=== PATIENT | female | born 1950 | race Hispanic/Latino ===

== ENCOUNTER 2017-07-27 13:22 | Observation (INO) | payer MEDICARE, OTHER ==
[~2017-07-27] VITALS: Ht 165.1 cm; Wt 90.7 kg
[2017-07-27] MEDS ORDERED: PANTOPRAZOLE 40 MG 10ML VIAL IV STA (13:45)
[2017-07-27] MEDS ORDERED: SODIUM CHLORIDE 0.9% 1000ML 1,000 ML IV STA (13:45)
[2017-07-27] MEDS ORDERED: METOPROLOL TARTRATE 50 MG TAB PO STA (13:45)
[2017-07-27] MEDS ORDERED: ENOXAPARIN SODIUM INJ 100 MG/ML SYR SC STA (13:45)
--- NOTE | 2017-07-27 13:55 | Diagnostic Imaging Report ---
PROCEDURE: CHEST SINGLE (PORTABLE) COMPARISON: None. INDICATIONS: CARDIAC WORKUP FINDINGS: The lungs are well-inflated. No focal airspace consolidation, pleural effusion, or pneumothorax. There is mild enlargement of the cardiac silhouette with multiple median sternotomy wires. Atherosclerotic calcification and tortuosity of the thoracic aorta. Enlargement of the central pulmonary vasculature. No acute osseous abnormality. Nonaggressive appearing sclerotic focus in the proximal right humerus measures 3.1 cm, and likely represents an enchondroma, though the differential diagnosis includes bone infarct. CONCLUSION: Mild cardiomegaly with pulmonary venous congestion. Dictated by: César Sky M.D. on 07/27/2017 at 13:56 Electronically approved by: César Sky M.D. on 07/27/2017 at 13:56
[2017-07-27] MEDS ORDERED: FAMOTIDINE 20 MG/2 ML VIAL IV SCH (14:00)
[2017-07-27] MEDS ORDERED: METOPROLOL TARTRATE 25 MG TAB PO SCH (14:00)
[2017-07-27] MEDS ORDERED: NITROGLYCERIN 0.4 MG SUBL SL PRN (14:00)
[2017-07-27] MEDS ORDERED: DEXTROSE 50% SYRINGE 50 ML IV PRN (14:00)
[2017-07-27] MEDS ORDERED: ENOXAPARIN SODIUM INJ 100 MG/ML SYR SC SCH (14:00)
[2017-07-27] MEDS ORDERED: ONDANSETRON HCL INJ 2 MG/ML VIAL IV PRN (14:00)
[2017-07-27] MEDS ORDERED: MORPHINE SULFATE 2 MG/ML SYR IV PRN (14:00)
[2017-07-27] MEDS ORDERED: ENOXAPARIN INJ 80 MG/0.8 ML SYR SC SCH (14:00)
[2017-07-27 14:25] LABS: BASOPHILS # (AUTO) 0.1 (0.0-0.1); BASOPHILS % 0.6 % (0.0-1.0); EOSINOPHILS # (AUTO) 0.4 (0.0-0.4); EOSINOPHILS % 3.8 % (0.0-6.0); HEMATOCRIT 44.3 % (34.2-44.1); HEMOGLOBIN 14.4 g/dL (12.0-16.0); LYMPHOCYTES # (AUTO) 2.6 (1.0-3.2); MEAN CORPUSCULAR HEMOGLOBIN 27.6 pg (28-32); MEAN CORPUSCULAR HGB CONC 32.5 g/dL (31-35); MONOCYTES # (AUTO) 0.7 (0.2-0.8); MONOCYTES % 6.3 % (4.4-11.3); NEUTROPHILS # (AUTO) 6.5 (2.1-6.9); NEUTROPHILS % 63.6 % (38.7-80.0); PLATELET COUNT 350 x10e3/uL (140-360); RED BLOOD COUNT 5.21 x10e6/uL (3.6-5.1); RED CELL DISTRIBUTION WIDTH 13.5 % (11.7-14.4)
[2017-07-27 14:31] LABS: INR 1.02; PROTHROMBIN TIME 12.6 seconds (11.9-14.5)
[2017-07-27 14:32] LABS: PARTIAL THROMBOPLASTIN TIME 24.7 seconds (23.8-35.5)
[2017-07-27 14:39] LABS: ALBUMIN 3.4 g/dL (3.5-5.0); ALBUMIN/GLOBULIN RATIO 0.7 (0.8-2.0); ANION GAP 15.3 mmol/L (8-16); CALCIUM 9.3 mg/dL (8.4-10.2); CREATININE, SERUM 1.23 mg/dL (0.57-1.11); MAGNESIUM 1.9 MG/DL (1.3-2.1); POTASSIUM 4.3 mmol/L (3.5-5.1)
[2017-07-27 14:46] LABS: BILIRUBIN,URINE NEGATIVE (NEGATIVE); CLARITY,URINE CLOUDY (CLEAR); COLOR,URINE YELLOW (YELLOW); KETONES,URINE NEGATIVE (NEGATIVE); LEUKOCYTE ESTERASE ,URINE 2+ (NEGATIVE); NITRITE,URINE NEGATIVE (NEGATIVE); URINE UROBILINOGEN 0.2 mg/dL (0.2 - 1)
[2017-07-27 14:49] LABS: PROTEIN,URINE DIPSTICK 1+ (NEGATIVE)
[2017-07-27 14:54] LABS: AMPHETAMINES SCREEN,URINE NEGATIVE (NEGATIVE); BENZODIAZEPINES SCREEN,URINE NEGATIVE (NEGATIVE); PHENCYCLIDINE SCREEN,URINE NEGATIVE (NEGATIVE)
[2017-07-27 15:01] LABS: CREATINE KINASE MB 2.9 ng/mL (0-5.0); THYROID STIMULATING HORMONE 0.76 uIU/mL (0.350-4.940)
[2017-07-27 15:08] LABS: BACTERIA,URINE RARE /HPF; EPITHELIAL CELLS,URINE MODERATE /LPF; MUCUS,URINE FEW (RARE); RBC,URINE 0-5 /HPF (0-5)
[2017-07-27 15:09] LABS: AMORPHOUS SEDIMENT,URINE FEW (FEW)
[2017-07-27] MEDS ORDERED: INSULIN REGULAR, HUMAN 100 UNIT/1 ML 3ML VIAL IV SCH (15:15)
[2017-07-27] MEDS ORDERED: INSULIN REGULAR, HUMAN 100 UNIT/1 ML 3ML VIAL SQ ONE (15:15)
--- OUTSIDE RECORDS SUMMARY | 2017-07-27 15:23 | XMS REPORT ---
Author Author [facility] Address Unknown Phone Unavailable Care Team Providers Care Hand Counter Name Role Phone BEBA GARLAND Unavailable Unavailable Problems This patient has no known problems. Allergies, Adverse Reactions, Alerts This patient has no known allergies or adverse reactions. Medications This patient has no known medications. Results Test Description Test Time Test Comments Text Results Atomic Results Result Comments CHEST SINGLE (PORTABLE) [place] [address] Patient Name: RENETTA WEBSTER MR #: [id number] : 1950 Age/Sex: 67/F Req #: [id number] Adm Physician: Ordered by: BEBA GARLAND MD, MD Report #: [id number] Location: ER Room/Bed: Procedure: [id number] DX/CHEST SINGLE (PORTABLE) Exam Date: 07/27/17 Exam Time: 1335 REPORT STATUS: Signed PROCEDURE: CHEST SINGLE (PORTABLE) COMPARISON: None. INDICATIONS: CARDIAC WORKUP FINDINGS: The lungs are well-inflated. No focal airspace consolidation, pleural effusion, or pneumothorax. There is mild enlargement of the cardiac silhouette with multiple median sternotomy wires. Atherosclerotic calcification and tortuosity of the thoracic aorta. Enlargement of the central pulmonary vasculature. No acute osseous abnormality. Nonaggressive appearing sclerotic focus in the proximal right humerus measures 3.1 cm, and likely represents an enchondroma, though the differential diagnosis includes bone infarct. CONCLUSION: Mild cardiomegaly with pulmonary venous congestion. Dictated by: Jame Barajas M.D. on 07/27/2017 at 13:56 Electronically approved by: Jame Barajas M.D. on 07/27/2017 at 13:56 Dictated By: JAME BARAJAS MD [id number] Transcribed By: HERNANDO on 07/27/17 1358 COPY TO: BEBA GARLAND
[2017-07-27] MEDS ORDERED: CEFTRIAXONE SOD 1 GM VIAL IV SCH (16:00)
[2017-07-27] MEDS ORDERED: HYDRALAZINE HCL 20 MG/ML VIAL IV PRN (16:00)
[2017-07-27] MEDS ORDERED: FUROSEMIDE 20 MG TAB PO SCH (16:15)
[2017-07-27 17:41] VITALS: BP 153/89
[2017-07-27 17:46] VITALS: BP 153/89
[2017-07-27] MEDS ORDERED: TYLENOL # 31 EA PO (17:55)
[2017-07-27] MEDS ORDERED: ASPIRIN81 MG PO (17:55)
[2017-07-27] MEDS ORDERED: LIPITOR20 MG PO (17:55)
[2017-07-27] MEDS ORDERED: NORVASC5 MG PO (17:55)
[2017-07-27] MEDS ORDERED: COREG12.5 MG PO (17:56)
[2017-07-27] MEDS ORDERED: LASIX40 MG PO (17:56)
[2017-07-27] MEDS ORDERED: GLIPIZIDE5 MG PO (17:57)
[2017-07-27] MEDS ORDERED: LISINOPRIL10 MG PO (17:59)
[2017-07-27] MEDS ORDERED: ISOSORBIDE MONO20 MG PO (17:59)
[2017-07-27] MEDS ORDERED: HYDRALAZINE HCL25 MG PO (17:59)
[2017-07-27] MEDS ORDERED: POTASSIUM CHLO10 ME1 PO (18:00)
[2017-07-27] MEDS ORDERED: MAGNESIUM OXID400 MG PO (18:00)
[2017-07-27] MEDS: METFORMIN HCL 500 MG TAB PO SCH (18:44)
[2017-07-27] MEDS: INSULIN REGULAR, HUMAN 100 UNIT/1 ML 3ML VIAL SQ SCH ×2 (18:51→20:35)
[2017-07-27 20:00] VITALS: BP 162/91
[2017-07-27] MEDS: ISOSORBIDE DINITRATE 20 MG TAB PO SCH (20:30)
[2017-07-27] MEDS: FUROSEMIDE INJ 10 MG/ML 4 ML VIAL IV SCH (20:30)
[2017-07-27] MEDS: CARVEDILOL 12.5 MG TAB PO SCH (20:30)
[2017-07-27] MEDS: SIMVASTATIN 40 MG TAB PO SCH (20:30)
[2017-07-27] MEDS: HYDRALAZINE HCL 25 MG TAB PO SCH (20:30)
--- NOTE | 2017-07-27 20:44 | Consultation ---
DATE OF CONSULTATION: July 27, 2017 REQUESTING PHYSICIAN: Dr. Mckee. REASON FOR CONSULTATION: Congestive heart failure. HISTORY OF PRESENT ILLNESS: This is a 67-year-old woman with history of coronary artery disease, status post 3-vessel CABG in 2016, congestive heart failure, diabetes mellitus, hypertension and hyperlipidemia who presents after she ran out of her medications 2 weeks ago. The patient reports she was moving between her daughter's houses and lost her medications. She denies any acute complaints. She states that she has been having discomfort across her chest that has been ongoing since her bypass surgery. This is unchanged. In addition, she has chronic orthopnea for the last year and dyspnea on exertion at approximately 10-15 feet. This has not changed as far as she can tell. She denies any edema or palpitations. REVIEW OF SYSTEMS: Negative except for HPI PAST MEDICAL HISTORY: Coronary artery disease, status post 3-vessel CABG, reportedly in November 2015, congestive heart failure, diabetes mellitus, hypertension, hyperlipidemia, chronic kidney disease. PAST SURGICAL HISTORY: Three vessel CABG, cholecystectomy, appendectomy. ALLERGIES: NIACIN. SOCIAL HISTORY: She quit smoking in 1999. She previously smoked approximately one pack a week for 10 years. Denies any alcohol or illicit drugs. MEDICATIONS: Please see EMR. FAMILY HISTORY: Noncontributory. PHYSICAL EXAMINATION VITAL SIGNS: Temperature 98 degrees, pulse 81, respiratory rate 18, blood pressure 153/89, oxygen saturation 95% on room air. GENERAL: An obese woman in no acute distress. HEENT: Normocephalic, atraumatic. Pupils are equal. No scleral icterus. NECK: Supple. No thyromegaly or cervical lymphadenopathy. No carotid bruits. LUNGS: Clear to auscultation bilaterally. No wheezes or crackles. CARDIOVASCULAR: Normal rate, regular rhythm. No murmurs. Normal S1 and S2. ABDOMEN: Soft and nontender. EXTREMITIES: No edema. NEUROLOGIC: Nonfocal exam. EKG: Sinus tachycardia with occasional PVCs, possible left atrial enlargement. Chest x-ray: Mild cardiomegaly with pulmonary venous congestion. Echocardiogram was an extremely technically difficult study with suboptimal views. The left ventricle is normal size with moderate, extensive LVH. LVEF is moderately impaired with EF between 30% to 35%. Estimated RVSP was 53 mmHg. RA pressure of 3 mmHg. There was mild aortic stenosis with peak velocity of 2 mm a second and a mean gradient of 10 mmHg. IMPRESSION 1. Hypertensive urgency. 2. Chronic systolic heart failure. 3. Diabetes mellitus, uncontrolled., likely chronic kidney disease. 4. Coronary artery disease, status post 3-vessel coronary artery bypass graft. 5. Hyperlipidemia. RECOMMENDATIONS: The patient has resumed her home cardiac medications with improvement. This should improve her blood pressure. In addition, her RVSP is elevated, likely she has component of volume overload. We will start the patient on intravenous Lasix. Continue current cardiac medications. Otherwise, if her blood pressure and heart rate tolerates, plan to titrate up her outpatient Carvedilol which was 12.5 mg p.o. b.i.d. Monitor creatinine closely. Thank you for this consult. We will continue to follow. Job#: [id number] [place]
[2017-07-27 22:43] LABS: CREATINE KINASE MB 2.8 ng/mL (0-5.0)
[2017-07-28] VITALS (7 sets, daily range): BP systolic 100–142; BP diastolic 58–87
[2017-07-28 06:25] LABS: BASOPHILS # (AUTO) 0.1 (0.0-0.1); BASOPHILS % 0.7 % (0.0-1.0); EOSINOPHILS # (AUTO) 0.5 (0.0-0.4); EOSINOPHILS % 5.3 % (0.0-6.0); HEMATOCRIT 41.9 % (34.2-44.1); HEMOGLOBIN 13.2 g/dL (12.0-16.0); LYMPHOCYTES # (AUTO) 1.9 (1.0-3.2); MEAN CORPUSCULAR HEMOGLOBIN 27.4 pg (28-32); MEAN CORPUSCULAR HGB CONC 31.5 g/dL (31-35); MEAN CORPUSCULAR VOLUME 86.9 fL (81-99); MONOCYTES # (AUTO) 0.6 (0.2-0.8); MONOCYTES % 6.9 % (4.4-11.3); NEUTROPHILS # (AUTO) 5.7 (2.1-6.9); NEUTROPHILS % 64.4 % (38.7-80.0); PLATELET COUNT 321 x10e3/uL (140-360); RED BLOOD COUNT 4.82 x10e6/uL (3.6-5.1); RED CELL DISTRIBUTION WIDTH 13.9 % (11.7-14.4)
[2017-07-28 06:46] LABS: ALBUMIN/GLOBULIN RATIO 0.8 (0.8-2.0); CALCIUM 8.9 mg/dL (8.4-10.2); CHOL/HDL RATIO 3.3 (3.0-3.6); CREATININE, SERUM 1.72 mg/dL (0.57-1.11); MAGNESIUM 1.9 MG/DL (1.3-2.1)
[2017-07-28 07:13] LABS: CREATINE KINASE MB 1.8 ng/mL (0-5.0)
[2017-07-28 07:40] LABS: ANION GAP 14.2 mmol/L (8-16)
[2017-07-28 07:57] LABS: POTASSIUM 5.2 mmol/L (3.5-5.1)
[2017-07-28] MEDS: FUROSEMIDE INJ 10 MG/ML 4 ML VIAL IV SCH (08:12)
[2017-07-28] MEDS: METFORMIN HCL 500 MG TAB PO SCH (08:12)
[2017-07-28] MEDS: ISOSORBIDE DINITRATE 20 MG TAB PO SCH ×3 (08:13→20:11)
[2017-07-28] MEDS: CARVEDILOL 12.5 MG TAB PO SCH ×2 (08:13→20:10)
[2017-07-28] MEDS: HYDRALAZINE HCL 25 MG TAB PO SCH ×3 (08:13→18:06)
[2017-07-28] MEDS: ASPIRIN 81 MG ENTERIC COATED PO SCH (08:13)
[2017-07-28] MEDS: INSULIN REGULAR, HUMAN 100 UNIT/1 ML 3ML VIAL SQ SCH ×4 (08:20→20:11)
[2017-07-28] MEDS ORDERED: LISINOPRIL 10 MG TAB PO SCH (09:00)
[2017-07-28] MEDS ORDERED: ASPIRIN 325 MG TAB EC PO SCH (09:00)
--- NOTE | 2017-07-28 10:24 | Discharge Summary ---
NO DICTATION, LENGTH 19 SECONDS. CEDRIC MCDONALD M.D. Job#: [id number] MH
[2017-07-28] MEDS ORDERED: GLIPIZIDE 5 MG TAB ER PO SCH (16:30)
[2017-07-28] MEDS: SIMVASTATIN 40 MG TAB PO SCH (20:11)
--- NOTE | 2017-07-28 22:45 | Progress Note ---
DATE: July 28, 2017 CARDIOLOGY PROGRESS NOTE SUBJECTIVE: Feels better, no new complaints. OBJECTIVE: VITAL SIGNS: Temperature 96.6, heart rate 82, respiratory rate 20, blood pressure 135/77, O2 sat 99% on room air. GENERAL: In no acute distress, alert. NECK: No JVD. CHEST: Clear to auscultation. CARDIOVASCULAR: Regular rate and rhythm. Normal S1 and S2. No S3, no S4. Sternotomy scar. ABDOMEN: Soft. EXTREMITIES: Trace edema. CARDIOVASCULAR MEDICATIONS: 1. Isosorbide dinitrate 20 mg t.i.d. 2. Hydralazine 50 mg t.i.d. 3. Carvedilol 12.5 mg q.12h. 4. Aspirin 81 mg daily. 5. Zocor 40 mg nightly. 6. Nitroglycerin p.r.n. LABORATORY STUDIES: Studies reviewed. Hemoglobin 13.2. INR 1. Creatinine 1.7, up trending from 1.2. Yesterday glucose 168. Serial troponins are negative. LDL 42, HDL 28. ASSESSMENT: 1. Coronary artery disease, status post aortocoronary bypass, 3-vessel in 2016. 2. Diabetes mellitus, uncontrolled. 3. Hyperlipidemia. 4. Hypertensive urgency. 5. Moderate left ventricular hypertrophy. 6. Mild aortic stenosis in the setting of possibly bicuspid valve on limited echocardiographic study. 7. Acute kidney injury on chronic kidney disease. 8. Borderline hyperkalemia. PLAN: Monitor urine output and renal function as well as electrolytes, on diuretics with noted improvement. Blood pressure improving following up titration of carvedilol. Has impairment in ventricular systolic function estimated at 30% to 35% on echocardiogram. Will need evaluation for AICD following optimization of medical therapy. Advise on close followup with Dr. Chamorro upon discharge in the office. Job#: [id number]
[2017-07-29 00:18] VITALS: BP 151/79
[2017-07-29 04:00] VITALS: BP 108/55
[2017-07-29 06:32] LABS: CALCIUM 8.6 mg/dL (8.4-10.2); CREATININE, SERUM 1.43 mg/dL (0.57-1.11)
[2017-07-29 08:00] VITALS: BP 152/90
[2017-07-29] MEDS: ASPIRIN 81 MG ENTERIC COATED PO SCH (08:59)
[2017-07-29] MEDS: HYDRALAZINE HCL 25 MG TAB PO SCH (08:59)
[2017-07-29] MEDS: ISOSORBIDE DINITRATE 20 MG TAB PO SCH (09:00)
[2017-07-29] MEDS: CARVEDILOL 12.5 MG TAB PO SCH (09:00)
[2017-07-29] MEDS: INSULIN REGULAR, HUMAN 100 UNIT/1 ML 3ML VIAL SQ SCH (09:00)
[2017-07-29 09:11] VITALS: BP 152/90
[2017-07-29] MEDS ORDERED: GLIPIZIDE5 MG PO (10:51)
[2017-07-29] MEDS ORDERED: HYDRALAZINE HCL25 MG PO (10:51)
--- NOTE | 2017-07-29 11:30 | Discharge Summary ---
PRIMARY CARE DOCTOR: Luis Brasher MD FINAL DIAGNOSIS: Hypertensive urgency due to noncompliance. SECONDARY DIAGNOSES 1. Acute renal failure and mild hyperkalemia due to over-diuresis. 2. Uncontrolled diabetes due to noncompliance. 3. Systolic congestive heart failure with ejection fraction of 35%. 4. Stage-3 chronic kidney disease, stable. SPUDDER: Dr. Little of cardiology. PROCEDURES/STUDIES PERFORMED: Echocardiogram. HISTORY: Per H and P. HOSPITAL COURSE: The patient ran out of all of her medicines for 2 weeks. She came in with systolic blood pressure of 230 and also with headache. After resuming her medicines, she did well. It was unclear whether she was in acute CHF on admission. Her lungs sound fine. The patient was not short of breath. However, chest x-ray showed a little bit of pulmonary edema. Her echocardiogram was suggestive of volume overload. Therefore, IV Lasix 40 mg q.8 h. was started. However, the patient's creatinine went up to 1.7 with a potassium of 5.2. EKG was done, which did not show any peaked T waves. IV Lasix was discontinued. The potassium today on the day of discharge is 4.0, and creatinine is back down to 1.4. I will go ahead and resume her p.o. Lasix that she takes at home which is 40 mg twice a day and also resume her lisinopril which is 10 mg daily. I have updated her PCP on this hospitalization. The patient will follow up with her. As far as her uncontrolled diabetes, glipizide was restarted, and her sugar is better now. CONDITION ON DISCHARGE: Stable. DISCHARGE MEDICATIONS: Please see medication reconciliation form. The patient was seen and examined today. CEDRIC MCDONALD M.D. Job#: [id number] cc:LUIS BRASHER MD
[2017-07-29 12:27] VITALS: BP 100/56
== END 2017-07-29 12:56 | disposition home or self-care (01) ==
LOC: ER 13:26 → ERHOLD 15:21 → IMCU 16:29
PROVIDERS: ADMIT Internal Medicine; ATTEND Internal Medicine
DX: R07.9 Chest pain, unspecified (principal); I16.0 Hypertensive urgency; E11.65 Type 2 diabetes mellitus with hyperglycemia; R51 Headache; I13.0 Hypertensive heart and chronic kidney disease with heart failure and stage 1 through stage 4 chronic kidney disease, or unspecified chronic kidney disease; Z87.891 Personal history of nicotine dependence; E66.9 Obesity, unspecified; Z68.33 Body mass index [BMI] 33.0-33.9, adult; N18.3 Chronic kidney disease, stage 3 (moderate); Z95.1 Presence of aortocoronary bypass graft; I50.22 Chronic systolic (congestive) heart failure; E78.5 Hyperlipidemia, unspecified; I35.0 Nonrheumatic aortic (valve) stenosis; N17.9 Acute kidney failure, unspecified; E87.5 Hyperkalemia; T50.1X5A Adverse effect of loop [high-ceiling] diuretics, initial encounter; Y92.230 Patient room in hospital as the place of occurrence of the external cause; T46.5X6A Underdosing of other antihypertensive drugs, initial encounter
CPT/HCPCS: 36415 ×3; 71045; 80048; 80053 ×2; 80061; 80307; 81001; 82550 ×2; 82553 ×2; 82948 ×3; 83036; 83690; 83735 ×2; 83880; 84443; 84484 ×2; 85025 ×2; 85610; 85730; 87086; 93005 ×2; 93306; 99285; G0378 ×3; J1650; J1940 ×2; J2270; J2405; J7030

== ENCOUNTER 2018-03-05 10:53 | Emergency (ER) | payer OTHER ==
[~2018-03-05] VITALS: Ht 157.5 cm; Wt 99.8 kg
[~2018-03-05 10:53] MED LIST: ASPIRIN81 MG PO; COREG12.5 MG PO; GLIPIZIDE5 MG PO; HYDRALAZINE HCL25 MG PO; ISOSORBIDE MONO20 MG PO; LASIX40 MG PO; LIPITOR20 MG PO; LISINOPRIL10 MG PO; MAGNESIUM OXID400 MG PO; NORVASC5 MG PO; POTASSIUM CHLO10 ME1 PO; TYLENOL # 31 EA PO
[2018-03-05] MEDS ORDERED: ONDANSETRON HCL INJ 2 MG/ML VIAL IV STA (11:15)
[2018-03-05] MEDS ORDERED: MORPHINE SULFATE 2 MG/ML SYR IV STA (11:15)
[2018-03-05 11:34] LABS: BASOPHILS # (AUTO) 0.1 (0.0-0.1); BASOPHILS % 0.7 % (0.0-1.0); EOSINOPHILS # (AUTO) 0.2 (0.0-0.4); HEMATOCRIT 42.4 % (34.2-44.1); HEMOGLOBIN 13.5 g/dL (12.0-16.0); LYMPHOCYTES # (AUTO) 1.6 (1.0-3.2); LYMPHOCYTES % 15.5 % (18.0-39.1); MEAN CORPUSCULAR HEMOGLOBIN 26.7 pg (28-32); MEAN CORPUSCULAR HGB CONC 31.8 g/dL (31-35); MONOCYTES # (AUTO) 0.5 (0.2-0.8); MONOCYTES % 4.9 % (4.4-11.3); NEUTROPHILS % 76.6 % (38.7-80.0); PLATELET COUNT 271 x10e3/uL (140-360); RED BLOOD COUNT 5.05 x10e6/uL (3.6-5.1); RED CELL DISTRIBUTION WIDTH 13.6 % (11.7-14.4)
[2018-03-05 11:48] LABS: ALBUMIN 3.2 g/dL (3.5-5.0); ALBUMIN/GLOBULIN RATIO 0.8 (0.8-2.0); ANION GAP 17.8 mmol/L (8-16); CALCIUM 9.2 mg/dL (8.4-10.2); CREATININE, SERUM 1.67 mg/dL (0.57-1.11); POTASSIUM 3.8 mmol/L (3.5-5.1)
[2018-03-05 11:54] LABS: CREATINE KINASE MB 1.4 ng/mL (0-5.0)
[2018-03-05] MEDS ORDERED: INSULIN REGULAR, HUMAN 100 UNIT/1 ML 3ML VIAL IV ONE (12:00)
[2018-03-05] MEDS ORDERED: SODIUM CHLORIDE 0.9% 1000ML 2,000 ML IV SCH (12:00)
--- NOTE | 2018-03-05 13:13 | Diagnostic Imaging Report ---
Exam: Left-sided rib series History: Status post fall with left-sided rib pain Comparison: None. Findings: There is normal bone mineralization. No acute, displaced fracture or dislocation. No aggressive lytic or expansile lesion. No abnormal soft tissue calcification or soft tissue defect. Lungs are grossly clear. No consolidation or effusion. Mild prominence of the cardiac silhouette, which may be partly due to AP projection. Pulmonary vasculature is normal. Impression: 1. No acute, displaced fracture or dislocation. 2. Mild prominence of the cardiac silhouette, which may be partly due to AP projection. Signed by: Dr. Chino Francisco M.D. on 03/05/2018 1:10 PM
[2018-03-05] MEDS ORDERED: INSULIN LISPRO 100 UNIT/1 ML 3ML VIAL SQ STA (14:25)
[2018-03-05 15:30] LABS: BILIRUBIN,URINE NEGATIVE (NEGATIVE); CLARITY,URINE CLEAR (CLEAR); COLOR,URINE YELLOW (YELLOW); KETONES,URINE NEGATIVE (NEGATIVE); LEUKOCYTE ESTERASE ,URINE TRACE (NEGATIVE); NITRITE,URINE NEGATIVE (NEGATIVE); PROTEIN,URINE DIPSTICK NEGATIVE (NEGATIVE); URINE UROBILINOGEN 0.2 mg/dL (0.2 - 1)
[2018-03-05 15:42] LABS: AMORPHOUS SEDIMENT,URINE FEW (FEW); BACTERIA,URINE MANY /HPF; EPITHELIAL CELLS,URINE FEW /LPF; TRANSITIONAL EPI CELLS,URINE MODERATE
== END 2018-03-05 17:10 | disposition home or self-care (01) ==
LOC: ER 10:53
DX: R07.89 Other chest pain (principal); K52.9 Noninfective gastroenteritis and colitis, unspecified; E86.1 Hypovolemia; I95.9 Hypotension, unspecified; W01.0XXA Fall on same level from slipping, tripping and stumbling without subsequent striking against object, initial encounter; Y92.008 Other place in unspecified non-institutional (private) residence as the place of occurrence of the external cause
CPT/HCPCS: 36415; 71101; 80053; 81001; 82550; 82553; 82948; 84484; 85025; 93005; 99284; J2270; J2405; J7030

== ENCOUNTER 2018-10-17 10:18 | Emergency (ER) | payer OTHER ==
[~2018-10-17] VITALS: Ht 157.5 cm; Wt 99.8 kg
--- OUTSIDE RECORDS SUMMARY | 2018-10-17 10:21 | XMS REPORT ---
Author Author [facility] Address Unknown Phone Unavailable Care Team Providers Care Makeup Artistry Instructor Name Role Phone Abhishek HOLDEN Unavailable Unavailable BEBA GARLAND Unavailable Unavailable Payers Payer Name Policy Type Policy Number Effective Date Expiration Date Problems This patient has no known problems. Allergies, Adverse Reactions, Alerts Allergy Name Allergy Type Status Severity Reaction(s) Onset Date Inactive Date Treating Clinician Comments niacin DA Active MO 2017-10-23 00:00:00 Medications This patient has no known medications. Results Test Description Test Time Test Comments Text Results Atomic Results Result Comments RIBS UNILAT W/CXR 2018-03-05 13:07:00 [place] [address] Patient Name: RENETTA WEBSTER MR #: [id number] : 1950 Age/Sex: 67/F Req #: [id number] Adm Physician: Ordered by: QUINN HOLDEN MD Report #: [id number] Location: ER Room/Bed: Procedure: [id number] DX/RIBS UNILAT W/CXR Exam Date: 03/05/18 Exam Time: 1200 REPORT STATUS: Signed Exam: Left-sided rib series History: Status post fall with left-sided rib pain Comparison: None. Findings: There is normal bone mineralization. No acute, displaced fracture or dislocation. No aggressive lytic or expansile lesion. No abnormal soft tissue calcification or soft tissue defect. Lungs are grossly clear. No consolidation or effusion. Mild prominence of the cardiac silhouette, which may be partly due to AP projection. Pulmonary vasculature is normal. Impression: 1. No acute, displaced fracture or dislocation. 2. Mild prominence of the cardiac silhouette, which may be partly due to AP projection. Signed by: Dr. Aleshia Francisco M.D. on 03/05/2018 1:10 PM Dictated By: ALESHIA FRANCISCO MD 131 Transcribed By: ALEXANDRU on 03/05/18 1310 COPY TO: QUINN HLODEN MD CHEST SINGLE (PORTABLE) [place] [address] Patient Name: RENETTA WEBSTER MR #: [id number] : 1950 Age/Sex: 67/F Req #: [id number] Adm Physician: Ordered by: BEBA GARLAND MD, MD Report #: [id number] Location: ER Room/Bed: Procedure: [id number] DX/CHEST SINGLE (PORTABLE) Exam Date: 07/27/17 Exam [...] at 13:56 Dictated By: JAME BARAJAS MD 1353 Transcribed By: HERNANDO on 07/27/17 1353 COPY TO: BEBA GARLAND
[2018-10-17] MEDS ORDERED: ACETAMINOPHEN 1000 MG/100 ML IV STA (10:32)
[2018-10-17] MEDS ORDERED: GENTAMICIN 120MG/NS 100ML 100 ML IV STA (10:32)
[2018-10-17] MEDS ORDERED: SODIUM CHLORIDE 0.9% 1000ML 1,000 ML IV STA (10:32)
[2018-10-17 12:06] LABS: BASOPHILS # (AUTO) 0.1 (0.0-0.1); BASOPHILS % 0.4 % (0.0-1.0); EOSINOPHILS % 0.2 % (0.0-6.0); HEMATOCRIT 44.7 % (34.2-44.1); HEMOGLOBIN 14.7 g/dL (12.0-16.0); LYMPHOCYTES # (AUTO) 1.5 (1.0-3.2); LYMPHOCYTES % 10.6 % (18.0-39.1); MEAN CORPUSCULAR HEMOGLOBIN 28.2 pg (28-32); MEAN CORPUSCULAR HGB CONC 32.9 g/dL (31-35); MEAN CORPUSCULAR VOLUME 85.6 fL (81-99); MONOCYTES # (AUTO) 0.7 (0.2-0.8); MONOCYTES % 4.7 % (4.4-11.3); NEUTROPHILS # (AUTO) 11.6 (2.1-6.9); NEUTROPHILS % 83.5 % (38.7-80.0); PLATELET COUNT 293 x10e3/uL (140-360); RED BLOOD COUNT 5.22 x10e6/uL (3.6-5.1); RED CELL DISTRIBUTION WIDTH 13.7 % (11.7-14.4)
[2018-10-17 12:30] LABS: ALBUMIN 3.8 g/dL (3.5-5.0); ALBUMIN/GLOBULIN RATIO 0.8 (0.8-2.0); ANION GAP 14.1 mmol/L (8-16); CALCIUM 10.2 mg/dL (8.4-10.2); CREATININE, SERUM 1.54 mg/dL (0.57-1.11); POTASSIUM 4.1 mmol/L (3.5-5.1)
--- NOTE | 2018-10-17 13:30 | NUR ---
RECEIVED REPORT THAT PT IN ER 6. PT RESTING QUIETLY WITH MOTHER AT BEDSIDE. WAITING FOR HER CT. Addendum: 10/17/18 at 1446 by JANIS CORRECTION: DAUGHTER IS AT BEDSIDE. NOT MOTHER. MOTHER IS THE PT
--- NOTE | 2018-10-17 14:40 | NUR ---
PT JUST RETURNED FROM CT.
[2018-10-17] MEDS ORDERED: SODIUM CHLORIDE 0.9% 50ML 50 ML ONE (17:47)
[2018-10-17] MEDS ORDERED: IOPAMIDOL 370 MG/ML 200 ML INFUS..BTL INJ ONE (17:47)
--- NOTE | 2018-10-17 18:23 | Diagnostic Imaging Report ---
History:Productive cough, bilateral ear pain Comparison studies: None Technique: Axial images were obtained through the maxillofacial region. Coronal and sagittal images reconstructed from the axial data. Dose modulation, iterative reconstruction, and/or weight based adjustment of the mA/kV was utilized to reduce the radiation dose to as low as reasonably achievable. Radiation dose: Total DLP: 341 mGy*cm. Estimated effective dose: DLP x 0.015 Intravenous contrast: None Findings: Soft tissues: Enlarged oropharyngeal palatine tonsils abut the uvula and result in mild narrowing of the oropharyngeal airway. There are incidental bilateral oropharyngeal tonsilliths as sequela of chronic inflammation/infection. A 3 mm hypodensity in the left oropharyngeal tonsil likely prominent tonsillar crypt or postinfectious/inflammatory cyst. Small intratonsillar abscess felt less likely to No mass or rim-enhancing fluid collection/abscess. Paranasal sinuses: Scattered nonspecific mucosal thickening throughout the paranasal sinuses left maxillary sinuses with completely opacified left maxillary sinus and partially opacified bilateral ethmoid air cells. Right maxillary sinus partially opacified with mucosal thickening and contains frothy secretions which can be seen with acute sinusitis. Nasal cavity: Nonspecific diffuse reactive nasal turbinate hypertrophy. The left middle meatus, superior nasal cavity and olfactory recesses are opacified. Maxillofacial bones: No fractures or bony abnormalities. Orbits: Globes: Intact Extra or intraconal abnormalities: None. Temporal bones: Chronic inflammatory changes chronic inflammatory changes in the mastoids bilaterally, left greater than right. There is nonspecific partial right mastoid opacification. The right middle ear cavity posteriorly partially opacified with small effusion. Additional findings: Moderate to severe scattered atherosclerosis with likely at least mild stenosis in the distal left common carotid artery, mild stenosis at the bilateral carotid bulbs and stenosis in the bilateral vertebral arteries, degree which cannot be adequately assessed on this exam. The left vertebral artery (V4 segment) beyond its dural insertion is poorly visualized and may be severely stenotic or occluded. Incidental findings: Scattered foci of intravenous gas presumably iatrogenic related to intravenous access. IMPRESSION: 1. Rhinosinusitis with scattered sinonasal opacification and mucosal thickening. 2. Enlarged reactive oropharyngeal tonsils. No peritonsillar inflammatory changes or abscess. 3. Chronic inflammatory changes in the mastoids with nonspecific partial right middle ear and mastoid opacification. 4. Advanced atherosclerosis with possibly occluded or severely stenotic left intradural vertebral artery. Dedicated cervical and intracranial CTA could further evaluate. Signed by: Dr. César De Luna M.D. on 10/17/2018 6:19 PM
[2018-10-17] MEDS ORDERED: TYLENOL WITH C1 EACH PO (18:48)
[2018-10-17] MEDS ORDERED: AUGMENTIN 875-1 EACH PO (18:48)
[2018-10-17 19:11] VITALS: BP 180/97
== END 2018-10-17 19:11 | disposition home or self-care (01) ==
LOC: ER 10:18
DX: R50.9 Fever, unspecified (principal); R05 Cough; H60.313 Diffuse otitis externa, bilateral; J01.00 Acute maxillary sinusitis, unspecified; H66.011 Acute suppurative otitis media with spontaneous rupture of ear drum, right ear
CPT/HCPCS: 36415; 70487; 80053; 83605; 85025; 99283; J0131; J1580; J7030; Q9967

== ENCOUNTER → 2020-10-07 | Day surgery (SDC) | payer MEDICARE, OTHER ==
[2020-10-04 12:06] LABS: BASOPHILS # (AUTO) 0.1 (0.0-0.1); BASOPHILS % 0.5 % (0.0-1.0); EOSINOPHILS # (AUTO) 0.3 (0.0-0.4); EOSINOPHILS % 3.1 % (0.0-6.0); HEMATOCRIT 42.2 % (34.2-44.1); HEMOGLOBIN 13.3 g/dL (12.0-16.0); LYMPHOCYTES # (AUTO) 1.9 (1.0-3.2); LYMPHOCYTES % 18.3 % (18.0-39.1); MEAN CORPUSCULAR HEMOGLOBIN 27.4 pg (28-32); MEAN CORPUSCULAR HGB CONC 31.5 g/dL (31-35); MONOCYTES # (AUTO) 0.6 (0.2-0.8); NEUTROPHILS # (AUTO) 7.4 (2.1-6.9); NEUTROPHILS % 71.6 % (38.7-80.0); PLATELET COUNT 242 x10e3/uL (140-360); RED BLOOD COUNT 4.85 x10e6/uL (3.6-5.1); RED CELL DISTRIBUTION WIDTH 13.8 % (11.7-14.4)
[~2020-10-07] MED LIST changes: +AUGMENTIN 875-1 EACH PO; +INSULIN REGULAR, HUMAN 100 UNIT/1 ML 3ML VIAL ONE; +LABETALOL HCL 20 ML ONE; +LIDOCAINE HCL 2% LOCAL INJ 5 ML SDV VIAL INJ ONE; +MIDAZOLAM HCL 2 MG/2 ML VIAL ONE; +POVIDONE IODINE 0.05% 0.05 % ML PO ONE; +PROPOFOL IV EMULSION 10 MG/ML 20 ML VIAL ONE; +TYLENOL WITH C1 EACH PO
[2020-10-07 09:25] VITALS: BP 165/99
== END | disposition home or self-care (01) ==
LOC: OR 06:19
PROVIDERS: ATTEND Internal Medicine Gastroenterology
DX: Z12.11 Encounter for screening for malignant neoplasm of colon (principal); D12.0 Benign neoplasm of cecum; K57.30 Diverticulosis of large intestine without perforation or abscess without bleeding; K64.8 Other hemorrhoids; G47.33 Obstructive sleep apnea (adult) (pediatric); I25.10 Atherosclerotic heart disease of native coronary artery without angina pectoris; I25.2 Old myocardial infarction; E11.9 Type 2 diabetes mellitus without complications; E66.01 Morbid (severe) obesity due to excess calories; I10 Essential (primary) hypertension; R53.1 Weakness; Z88.8 Allergy status to other drugs, medicaments and biological substances; Z01.810 Encounter for preprocedural cardiovascular examination; Z01.812 Encounter for preprocedural laboratory examination; Z20.822 Contact with and (suspected) exposure to COVID-19; Z79.82 Long term (current) use of aspirin; Z95.5 Presence of coronary angioplasty implant and graft
CPT/HCPCS: 36415 ×2; 45385; 82948; 85025; 93005; J1817; J2001; J2250 ×2; J2704; J3490; U0002; 45378; 45384

== ENCOUNTER 2020-11-05 09:23 | Emergency (ER) | payer OTHER, MEDICARE ==
[~2020-11-05] VITALS: Ht 157.5 cm; Wt 99.8 kg
[~2020-11-05 09:23] MED LIST changes: -INSULIN REGULAR, HUMAN 100 UNIT/1 ML 3ML VIAL ONE; -LABETALOL HCL 20 ML ONE; -LIDOCAINE HCL 2% LOCAL INJ 5 ML SDV VIAL INJ ONE; -MIDAZOLAM HCL 2 MG/2 ML VIAL ONE; -POVIDONE IODINE 0.05% 0.05 % ML PO ONE; -PROPOFOL IV EMULSION 10 MG/ML 20 ML VIAL ONE
[2020-11-05] MEDS ORDERED: LIDOCAINE 4% PATCH TP ONE (09:45)
[2020-11-05] MEDS ORDERED: HYDROCODONE/APAP 5MG-325MG TAB PO ONE (09:45)
[2020-11-05] MEDS ORDERED: DEXAMETHASONE SOD PHOS 10 MG/1 ML VIAL IM ONE (12:45)
[2020-11-05 13:16] VITALS: BP 151/86
== END 2020-11-05 13:24 | disposition home or self-care (01) ==
LOC: ER 09:26
DX: M25.551 Pain in right hip (principal); M54.31 Sciatica, right side; E04.1 Nontoxic single thyroid nodule; W17.89XA Other fall from one level to another, initial encounter; Y92.531 Health care provider office as the place of occurrence of the external cause; I10 Essential (primary) hypertension; E11.9 Type 2 diabetes mellitus without complications; E78.5 Hyperlipidemia, unspecified; E78.00 Pure hypercholesterolemia, unspecified; I25.2 Old myocardial infarction
CPT/HCPCS: 70450; 72125; 72131; 73502; 99283; J1100

== ENCOUNTER 2021-12-06 13:27 | Inpatient (IN) | payer MEDICARE, OTHER ==
[~2021-12-06] VITALS: Ht 157.5 cm; Wt 90.7 kg
[2021-12-06 15:34] LABS: BASOPHILS % 0.4 % (0.0-1.0); EOSINOPHILS # (AUTO) 0.2 (0.0-0.4); EOSINOPHILS % 2.2 % (0.0-6.0); HEMATOCRIT 40.6 % (34.2-44.1); HEMOGLOBIN 12.5 g/dL (12.0-16.0); LYMPHOCYTES # (AUTO) 1.4 (1.0-3.2); LYMPHOCYTES % 16.8 % (18.0-39.1); MEAN CORPUSCULAR HEMOGLOBIN 26.9 pg (28-32); MEAN CORPUSCULAR HGB CONC 30.8 g/dL (31-35); MEAN CORPUSCULAR VOLUME 87.3 fL (81-99); MONOCYTES # (AUTO) 0.5 (0.2-0.8); MONOCYTES % 5.8 % (4.4-11.3); NEUTROPHILS # (AUTO) 6.2 (2.1-6.9); NEUTROPHILS % 74.4 % (38.7-80.0); PLATELET COUNT 233 x10e3/uL (140-360); RED BLOOD COUNT 4.65 x10e6/uL (3.6-5.1); RED CELL DISTRIBUTION WIDTH 15.2 % (11.7-14.4)
[2021-12-06 16:04] LABS: ALBUMIN 3.4 g/dL (3.5-5.0); ALBUMIN/GLOBULIN RATIO 0.9 (0.8-2.0); ANION GAP 13.2 mmol/L (8-16); CALCIUM 8.8 mg/dL (8.4-10.2); CREATININE, SERUM 1.1 mg/dL (0.57-1.11); POTASSIUM 4.2 mmol/L (3.5-5.1)
[2021-12-06] MEDS ORDERED: FUROSEMIDE INJ 10 MG/ML 4 ML VIAL IV ONE (16:15)
[2021-12-06] MEDS: HYDRALAZINE HCL 20 MG/ML VIAL IV PRN ×2 (19:44→23:43)
[2021-12-06] MEDS ORDERED: FUROSEMIDE INJ 10 MG/ML 4 ML VIAL ONE (20:00)
[2021-12-06] MEDS ORDERED: CLONIDINE HCL 0.2 MG TAB PO ONE (21:30)
[2021-12-07] VITALS (10 sets, daily range): BP systolic 131–194; BP diastolic 61–109
[2021-12-07] MEDS ORDERED: ATORVASTATIN CA80 MG PO (00:57)
[2021-12-07] MEDS ORDERED: CLOPIDOGREL75 MG PO (00:57)
[2021-12-07] MEDS ORDERED: CARVEDILOL25 MG PO (00:57)
[2021-12-07] MEDS ORDERED: FUROSEMIDE40 MG PO (00:57)
[2021-12-07] MEDS ORDERED: LOSARTAN POTASS25 MG PO (00:57)
[2021-12-07] MEDS ORDERED: HUMULIN 70100 UNIT/3 SC (00:57)
[2021-12-07] MEDS ORDERED: HYDRALAZINE HCL50 MG PO (00:57)
[2021-12-07] MEDS ORDERED: GLIPIZIDE10 MG PO (00:57)
[2021-12-07 07:34] LABS: HEMATOCRIT 43.5 % (34.2-44.1); HEMOGLOBIN 13.2 g/dL (12.0-16.0); MEAN CORPUSCULAR HEMOGLOBIN 26.7 pg (28-32); MEAN CORPUSCULAR HGB CONC 30.3 g/dL (31-35); MEAN CORPUSCULAR VOLUME 88.1 fL (81-99); PLATELET COUNT 248 x10e3/uL (140-360); RED BLOOD COUNT 4.94 x10e6/uL (3.6-5.1); RED CELL DISTRIBUTION WIDTH 15.7 % (11.7-14.4)
[2021-12-07 08:02] LABS: CALCIUM 9.2 mg/dL (8.4-10.2); CREATININE, SERUM 1.18 mg/dL (0.57-1.11)
[2021-12-07] MEDS: HYDRALAZINE HCL 20 MG/ML VIAL IV PRN (08:02)
[2021-12-07] MEDS ORDERED: FUROSEMIDE INJ 10 MG/ML 4 ML VIAL IV SCH (09:00)
[2021-12-07] MEDS: LOSARTAN POTASSIUM 100 MG TAB PO SCH (09:57)
[2021-12-07 10:11] LABS: EOSINOPHILS % (MANUAL) 3 % (0-7); LYMPHOCYTES % (MANUAL) 20 % (19-48); MONOCYTES % (MANUAL) 5 % (3.4-9.0); NEUTROPHILS % (MANUAL) 72 % (40-74); PLATELET ESTIMATE ADEQUATE; PLATELET MORPHOLOGY COMMENT NORMAL; RBC MORPHOLOGY COMMENT NORMAL
[2021-12-07] MEDS: FUROSEMIDE INJ 10 MG/ML 4 ML VIAL IV SCH ×2 (11:00→16:07)
[2021-12-07] MEDS: HYDRALAZINE HCL 25 MG TAB PO SCH ×3 (12:32→23:52)
[2021-12-07] MEDS: CLOPIDOGREL BISULFATE 75 MG TAB PO SCH (12:32)
[2021-12-07] MEDS: CARVEDILOL 12.5 MG TAB PO SCH (16:08)
[2021-12-07] MEDS ORDERED: ATORVASTATIN 10 MG TAB PO SCH (21:00)
[2021-12-07] MEDS: ATORVASTATIN 40 MG TAB PO SCH (21:06)
[2021-12-08] VITALS (9 sets, daily range): BP systolic 119–163; BP diastolic 62–86
[2021-12-08] MEDS: HYDRALAZINE HCL 25 MG TAB PO SCH ×4 (05:41→23:47)
[2021-12-08 06:42] LABS: HEMATOCRIT 38.5 % (34.2-44.1); HEMOGLOBIN 11.8 g/dL (12.0-16.0); MEAN CORPUSCULAR HEMOGLOBIN 26.6 pg (28-32); MEAN CORPUSCULAR HGB CONC 30.6 g/dL (31-35); MEAN CORPUSCULAR VOLUME 86.7 fL (81-99); PLATELET COUNT 243 x10e3/uL (140-360); RED BLOOD COUNT 4.44 x10e6/uL (3.6-5.1); RED CELL DISTRIBUTION WIDTH 15.8 % (11.7-14.4)
[2021-12-08 07:11] LABS: ALBUMIN/GLOBULIN RATIO 0.9 (0.8-2.0); ANION GAP 13.5 mmol/L (8-16); CALCIUM 8.2 mg/dL (8.4-10.2); CHOL/HDL RATIO 5.5 (3.0-3.6); CREATININE, SERUM 1.5 mg/dL (0.57-1.11); POTASSIUM 3.5 mmol/L (3.5-5.1)
[2021-12-08 07:30] LABS: THYROID STIMULATING HORMONE 0.674 uIU/mL (0.350-4.940)
[2021-12-08] MEDS: CARVEDILOL 12.5 MG TAB PO SCH ×2 (08:17→17:35)
[2021-12-08] MEDS: ASPIRIN 81 MG ENTERIC COATED PO SCH (08:17)
[2021-12-08] MEDS: LOSARTAN POTASSIUM 100 MG TAB PO SCH (08:17)
[2021-12-08] MEDS: FUROSEMIDE INJ 10 MG/ML 4 ML VIAL IV SCH (08:17)
[2021-12-08] MEDS: CLOPIDOGREL BISULFATE 75 MG TAB PO SCH (08:18)
[2021-12-08 09:47] LABS: EOSINOPHILS % (MANUAL) 4 % (0-7); LYMPHOCYTES % (MANUAL) 16 % (19-48); METAMYELOCYTES % (MANUAL) 1 % (0-0); MONOCYTES % (MANUAL) 6 % (3.4-9.0); NEUTROPHILS % (MANUAL) 73 % (40-74); PLATELET ESTIMATE ADEQUATE; PLATELET MORPHOLOGY COMMENT NORMAL; RBC MORPHOLOGY COMMENT NORMAL
[2021-12-08] MEDS: ATORVASTATIN 40 MG TAB PO SCH (20:25)
[2021-12-09 04:07] VITALS: BP 165/95
[2021-12-09] MEDS: HYDRALAZINE HCL 25 MG TAB PO SCH ×3 (06:04→16:58)
[2021-12-09 06:18] LABS: HEMATOCRIT 40.9 % (34.2-44.1); HEMOGLOBIN 12.4 g/dL (12.0-16.0); MEAN CORPUSCULAR HEMOGLOBIN 27.1 pg (28-32); MEAN CORPUSCULAR HGB CONC 30.3 g/dL (31-35); MEAN CORPUSCULAR VOLUME 89.3 fL (81-99); PLATELET COUNT 231 x10e3/uL (140-360); RED BLOOD COUNT 4.58 x10e6/uL (3.6-5.1); RED CELL DISTRIBUTION WIDTH 15.5 % (11.7-14.4)
[2021-12-09 06:44] LABS: ALBUMIN 3.1 g/dL (3.5-5.0); ALBUMIN/GLOBULIN RATIO 0.9 (0.8-2.0); ANION GAP 12.9 mmol/L (8-16); CALCIUM 8.2 mg/dL (8.4-10.2); CREATININE, SERUM 1.51 mg/dL (0.57-1.11); MAGNESIUM 1.9 MG/DL (1.3-2.1); POTASSIUM 3.9 mmol/L (3.5-5.1)
[2021-12-09 08:12] VITALS: BP 170/90
[2021-12-09 08:22] VITALS: BP 170/90
[2021-12-09 08:41] LABS: EOSINOPHILS % (MANUAL) 7 % (0-7); LYMPHOCYTES % (MANUAL) 24 % (19-48); MONOCYTES % (MANUAL) 6 % (3.4-9.0); NEUTROPHILS % (MANUAL) 62 % (40-74); PLATELET ESTIMATE ADEQUATE; PLATELET MORPHOLOGY COMMENT NORMAL; RBC MORPHOLOGY COMMENT NORMAL
[2021-12-09] MEDS: CARVEDILOL 12.5 MG TAB PO SCH ×2 (08:58→16:56)
[2021-12-09] MEDS: CLOPIDOGREL BISULFATE 75 MG TAB PO SCH (08:59)
[2021-12-09] MEDS ORDERED: FUROSEMIDE INJ 10 MG/ML 4 ML VIAL IV SCH (09:00)
[2021-12-09] MEDS: ASPIRIN 81 MG ENTERIC COATED PO SCH (09:00)
[2021-12-09] MEDS: LOSARTAN POTASSIUM 100 MG TAB PO SCH (09:00)
[2021-12-09 12:00] VITALS: BP 149/79
[2021-12-09 16:00] VITALS: BP 168/85
[2021-12-09] MEDS ORDERED: NON-FORMULARY MEDICATION (Hydralazine Hcl* 50 MG) PO SCH (17:00)
[2021-12-09] MEDS ORDERED: NON-FORMULARY MEDICATION (Glipizide 10 MG) PO SCH (17:00)
[2021-12-09] MEDS ORDERED: ATORVASTATIN 40 MG TAB PO SCH (21:00)
[2021-12-09] MEDS ORDERED: NON-FORMULARY MEDICATION (Atorvastatin Calcium 80 MG) PO SCH (21:00)
[2021-12-10] MEDS ORDERED: ASPIRIN 81 MG CHEW TAB PO SCH (09:00)
[2021-12-10] MEDS ORDERED: CLOPIDOGREL BISULFATE 75 MG TAB PO SCH (09:00)
[2021-12-10] MEDS ORDERED: FUROSEMIDE 40 MG TAB PO SCH ×2 (09:00)
[2021-12-10] MEDS ORDERED: NON-FORMULARY MEDICATION (Carvedilol 25 MG) PO SCH (09:00)
[2021-12-10] MEDS ORDERED: CARVEDILOL 12.5 MG TAB PO SCH (09:00)
[2021-12-10] MEDS ORDERED: LOSARTAN POTASSIUM 25 MG TAB PO SCH (09:00)
== END 2021-12-09 17:31 | disposition home or self-care (01) | DRG 291 ==
LOC: ER 14:25 → ERHOLD 16:16 → MED/SURG3 12-07 00:33
PROVIDERS: ADMIT Internal Medicine; ATTEND Internal Medicine
DX: I13.0 Hypertensive heart and chronic kidney disease with heart failure and stage 1 through stage 4 chronic kidney disease, or unspecified chronic kidney disease (principal); I50.43 Acute on chronic combined systolic (congestive) and diastolic (congestive) heart failure; Z95.1 Presence of aortocoronary bypass graft; E11.22 Type 2 diabetes mellitus with diabetic chronic kidney disease; I25.10 Atherosclerotic heart disease of native coronary artery without angina pectoris; N18.30 Chronic kidney disease, stage 3 unspecified; I25.2 Old myocardial infarction; I35.0 Nonrheumatic aortic (valve) stenosis; E78.5 Hyperlipidemia, unspecified; Z90.49 Acquired absence of other specified parts of digestive tract; Z90.710 Acquired absence of both cervix and uterus; Z88.8 Allergy status to other drugs, medicaments and biological substances; Z83.3 Family history of diabetes mellitus; Z80.42 Family history of malignant neoplasm of prostate; Z80.9 Family history of malignant neoplasm, unspecified; Z79.82 Long term (current) use of aspirin; Z79.84 Long term (current) use of oral hypoglycemic drugs; Z79.4 Long term (current) use of insulin; Z91.19 Patient's noncompliance with other medical treatment and regimen; Z20.822 Contact with and (suspected) exposure to COVID-19; Z87.891 Personal history of nicotine dependence
CPT/HCPCS: 0223U; 36415; 71045; 80048; 80053; 80061; 82948; 83735; 83880; 84443; 84484; 85007; 85025; 85027; 93005; 93306; 93971; 94799; 99284; J0360; J1940

== ENCOUNTER 2021-12-27 12:37 | Emergency (ER) | payer MEDICARE, OTHER ==
[~2021-12-27] VITALS: Ht 157.5 cm; Wt 90.7 kg
[~2021-12-27 12:37] MED LIST changes: +ATORVASTATIN CA80 MG PO; +CARVEDILOL25 MG PO; +CLOPIDOGREL75 MG PO; +FUROSEMIDE40 MG PO; +GLIPIZIDE10 MG PO; +HUMULIN 70100 UNIT/3 SC; +HYDRALAZINE HCL50 MG PO; +LOSARTAN POTASS25 MG PO
[2021-12-27] MEDS ORDERED: LAMISIL AT12 G1 TOP (14:53)
== END 2021-12-27 14:58 | disposition home or self-care (01) ==
LOC: ER 12:46
DX: S00.83XA Contusion of other part of head, initial encounter (principal); S90.32XA Contusion of left foot, initial encounter; W01.0XXA Fall on same level from slipping, tripping and stumbling without subsequent striking against object, initial encounter; Y93.01 Activity, walking, marching and hiking; Y92.89 Other specified places as the place of occurrence of the external cause; B35.3 Tinea pedis; I10 Essential (primary) hypertension; E11.9 Type 2 diabetes mellitus without complications; E78.5 Hyperlipidemia, unspecified; E78.00 Pure hypercholesterolemia, unspecified; I25.2 Old myocardial infarction; Z95.1 Presence of aortocoronary bypass graft
CPT/HCPCS: 70450; 99284